=== PATIENT | male | born 1995 | race Two or more races ===

== ENCOUNTER 2023-03-02 18:44 | Emergency (ER) | payer SELFPAY ==
[2023-03-02] MEDS ORDERED: Sodium Chloride 0.9% 1,000 ML IV ONE (19:14)
[2023-03-02 19:38] LABS: APPEARANCE,URINE CLEAR; BILIRUBIN,URINE NEGATIVE (NEGATIVE); COLOR,URINE YELLOW; GLUCOSE,URINE NEGATIVE (NEGATIVE); KETONES,URINE NEGATIVE (NEGATIVE); LEUKOCYTE ESTERASE,URINE NEGATIVE (NEGATIVE); NITRITE,URINE NEGATIVE (NEGATIVE); OCCULT BLOOD,URINE NEGATIVE (NEGATIVE); PH,URINE 6.5 (5.0-8.0); PROTEIN,URINE NEGATIVE (NEGATIVE); UROBILINOGEN,URINE 0.2 EU/dL (<2.0)
[2023-03-02 20:01] LABS: A/G RATIO 1.2 (0.9-1.6); ALBUMIN 4.3 g/dL (3.4-5.0); BILIRUBIN TOTAL 0.7 mg/dL (0.2-1.0); CALCIUM 8.9 mg/dL (8.5-10.1); CARBON DIOXIDE,CO2 28.2 mmol/L (21.0-32.0); CREATININE 1.2 mg/dL (0.8-1.3); EST CRCL DRUG DOSING (CG) 87.98 mL/min; POTASSIUM,K 3.6 mmol/L (3.5-5.1); PROTEIN TOTAL,TP 7.8 g/dL (6.4-8.2)
[2023-03-02 20:03] LABS: BASOPHILS PERCENT AUTO 0.3 % (0.0-1.0); EOSINOPHILS PERCENT AUTO 1.2 % (0.0-6.0); HEMATOCRIT 43.1 % (42.0-52.0); HEMOGLOBIN 15.3 g/dL (14.0-18.0); IMMATURE GRAN PERCENT AUTO 0.2 % (0.0-0.4); LYMPHOCYTES ABSOLUTE AUTO 2.15 K/uL (1.00-4.80); LYMPHOCYTES PERCENT AUTO 36.8 % (24.0-44.0); MEAN CORPUSCULAR HEMOGLOBIN 30.7 pg (28.0-32.0); MEAN CORPUSCULAR HGB CONC 35.5 g/dL (32.0-36.0); MEAN CORPUSCULAR VOLUME 86.4 fL (83.0-99.0); MEAN PLATELET VOLUME 10.3 fL (9.4-12.4); MONOCYTES ABSOLUTE AUTO 0.48 K/uL (0.00-0.80); MONOCYTES PERCENT AUTO 8.2 % (0.0-8.0); NEUTROPHILS ABSOLUTE AUTO 3.11 K/uL (1.80-7.70); NEUTROPHILS PERCENT AUTO 53.3 % (41.0-71.0); PLATELET COUNT,PLT 212 K/uL (150-400); RED BLOOD CELL COUNT 4.99 M/uL (4.52-5.90); WHITE BLOOD CELL COUNT,WBC 5.84 K/uL (3.9-11.3)
[2023-03-02 20:04] LABS: BASOPHILS ABSOLUTE AUTO 0.02 K/uL (0.00-0.20); EOSINOPHILS ABSOLUTE AUTO 0.07 K/uL (0.00-0.45); IMMATURE GRAN ABSOLUTE AUTO 0.01 K/uL (0.00-0.05)
== END 2023-03-02 20:48 | disposition home or self-care (01) ==
LOC: MW.ED 18:44
DX: R20.2 Paresthesia of skin (principal); Z88.6 Allergy status to analgesic agent
CPT/HCPCS: 36415; 70450; 72125; 80053; 81003; 82947; 85025; 93005; 96360; 99284; J7030; 93010; 99283